=== PATIENT | female | born 1985 | race Caucasian/White ===

== ENCOUNTER 2018-11-05 05:49 | Inpatient (IN) | payer BC ==
[~2018-11-05] VITALS: Ht 162.6 cm; Wt 80.0 kg
[2018-11-05] VITALS (37 sets, daily range): BP systolic 118–156; BP diastolic 59–102; PULSE 65–117; TEMP 97.7–98.8
[~2018-11-05 05:49] MED LIST: ATIVAN 1MG T1 MG/TAB PO; FOLIC ACID0.4 MG PO; IBU600 MG PO; LAMICTAL 100MG100 MG PO; LAMICTAL200 MG PO; PERCOCET 325 MG1 TA2 PO; PRENATAL MVI PO; PRENATAL1 TA7 PO; PROBIOTIC FORMU1 CAP PO; VITAMIN B-1000 MCG/T; VITAMIN D1000 IU; VITAMIN K0.1 MG; VITAMIN K0.1 MG PO
--- NOTE | 2018-11-05 07:15 | NUR ---
Pt arrives on unit ambulatory for induction of labor. G5L1 at 39.0 weeks. Changed into clean gown. EFM and toco applied. Denies leaking of fluid, vaginal bleeding and regular ctx. Reports good movement. Admission assessment completed. IV started in RW. Labs drawn. LR infusing. Consents signed. Pt updated on POC. Oriented to room. Bed locked in low position. Call light within reach. No questions or concerns at this time.
[2018-11-05] MEDS ORDERED: PROCARDIA XL 3030 MG PO (07:20)
[2018-11-05 07:56] LABS: COLLECTION METHOD CLEAN CATCH
[2018-11-05 08:00] LABS: BASO % 0.2 % (0.0-2.0); EOS # 0.4 (0.0-0.7); EOS % 4.7 % (0-4.0); GRAN # 5.8 (1.4-6.5); GRAN % 69.4 % (42.2-75.2); HEMATOCRIT 35.7 % (37.0-47.0); HEMOGLOBIN 11.9 g/dl (12.5-16.0); LYMPH # 1.4 (1.2-3.4); LYMPH % 17.1 % (20.0-51.0); MEAN CELL VOLUME 84 fl (80.0-100.0); MEAN CORPUSCULAR HEMOGLOBIN 28 pg (27.0-31.0); MEAN CORPUSCULAR HGB CONC 33 g/dl (33.0-37.0); MEAN PLATELET VOLUME 9.9 fl (7.4-10.4); MONO # 0.7 (0.1-0.6); MONO % 8.1 % (1.7-9.3); PLATELET COUNT 369 K/mm3 (130-400); RED BLOOD COUNT 4.25 M/mm3 (4.10-5.30); REDCELL DISTRIBUTION WIDTH-CV 13.2 % (11.5-14.5)
[2018-11-05 08:04] LABS: PH 7 (5-8); SQUAMOUS EPITHELIAL 0-2 /hpf; URINE APPEARANCE Clear; URINE BACTERIA Occasional /hpf; URINE BILIRUBIN Negative (NEGATIVE); URINE BLOOD Negative (NEGATIVE); URINE COLOR Straw; URINE GLUCOSE Negative (NEGATIVE); URINE KETONE Negative (NEGATIVE); URINE LEUKOCYTE ESTERASE Negative (NEGATIVE); URINE NITRATE Negative (NEGATIVE); URINE PROTEIN(semi-quant) Negative (NEGATIVE); URINE RBC 0-2 /hpf; URINE UROBILINOGEN Negative (NEGATIVE); URINE WBC 0-2 /hpf
[2018-11-05 08:10] LABS: ALBUMIN 3.7 gm/dL (3.5-5.0); BILIRUBIN,TOTAL 0.3 mg/dL (0.0-1.0); CALCIUM 9.4 mg/dL (8.4-10.2); CREATININE, serum 0.5 (0.52-1.25); POTASSIUM 3.4 mmol/L (3.4-5.0); TOTAL PROTEIN 6.9 gm/dL (6.4-8.2)
--- NOTE | 2018-11-05 12:15 | NUR ---
Pt sitting upright. Difficulty tracing FHR. RN at bedside. FHR audible.
--- NOTE | 2018-11-05 14:09 | NUR ---
Pt states increase of rectal pressure. SVE per this RN C/0. Dr. Mcallister requested to unit. 1422- of viable infant attended by Dr. Mcallister. Cord clamped x 2. cut from umbilicus, dried and placed on mother's abdomen. Apgars 8/9/9. Care of infant to Evelia Louise RN. 1425- of placenta. Fundus firm, at umbilicus. Bleeding WNL. Pitocin bolus infusing. Perineum intact. Pericare and icepack applied. Pt updated on POC. Safety reviewed. Bed locked in low position. Call light within reach. No questions or concerns at this time.
--- NOTE | 2018-11-05 21:00 | NUR ---
PT TAKES HER OWN LamoTRIgine
[2018-11-06 03:06] VITALS: BP 130/84; PULSE 80; TEMP 98.4
[2018-11-06] MEDS ORDERED: MOTRIN 800800 MG/TAB PO (06:42)
[2018-11-06 07:42] VITALS: BP 124/66; PULSE 74; TEMP 98.1
[2018-11-06 08:43] LABS: HEMATOCRIT 35.3 % (37.0-47.0); HEMOGLOBIN 11.8 g/dl (12.5-16.0)
--- NOTE | 2018-11-06 12:32 | NUR ---
Elect Equip Maint Eng offered congrats to parents and family.
[2018-11-06 15:08] VITALS: BP 126/78; PULSE 78; TEMP 98.1
== END 2018-11-06 16:26 | disposition home or self-care (01) | DRG 806 ==
LOC: LDR 05:49 → OB 17:00
PROVIDERS: ADMIT Obstetrics & Gynecology
PROC: 10E0XZZ Delivery of Products of Conception, External Approach (ICD-10-PCS; principal; 2018-11-05)
PROC: 3E0P7VZ Introduction of Hormone into Female Reproductive, Via Natural or Artificial Opening (ICD-10-PCS; 2018-11-05)
PROC: 10907ZC Drainage of Amniotic Fluid, Therapeutic from Products of Conception, Via Natural or Artificial Opening (ICD-10-PCS; 2018-11-05)
DX: O13.4 Gestational [pregnancy-induced] hypertension without significant proteinuria, complicating childbirth (principal); O99.354 Diseases of the nervous system complicating childbirth; Z37.0 Single live birth; Z3A.39 39 weeks gestation of pregnancy; G40.909 Epilepsy, unspecified, not intractable, without status epilepticus
CPT/HCPCS: J2590; J7120

== ENCOUNTER → 2018-11-09 | Outpatient (CLI) | payer BC ==
[~2018-11-09] MED LIST changes: +MOTRIN 800800 MG/TAB PO; +PROCARDIA XL 3030 MG PO
--- NOTE | 2018-11-09 12:22 | NUR ---
Pt, Ping Amador, presents for walk-in clinic with 4 day old baby girl, Shabnam Amador. Pt c/o sore nipples and has h/o ineffective with previous child who is now 4 years old. Shabnam was born on [birth year] and weighed 6#10oz. Discharge weight was 6#8oz. Pt does not remember infant's weight yesterday with Dr. Claire, only that she was "6%" below weight. Today Shabnam weighs 6#4.4oz (2846 gms) for 6% loss from . Pt works with latching baby, reminded of positions that make latching more easy, including support of breast and baby. Infant on and of left side before she stays for about 15 min. On the right breast, pt has a noted scab directly in the center of nipple face, indicative of pinching and shallow latch. Pt nurses this breast for about 20 min. Post feed gain is 12gms from the left and 10gms from the left for a total gain of 22 gms. Because of low output, behaviour (still strongly rooting) after feeding, and little change in breast milk supply, pt advised to supplement 15-30ml EBM or formula after each , and to pump after breastfeedings to improve milk supply. Pt verbalizes understanding, disappointed with information of 's tranfer, but indicates she will work with feedings. Follow up: two days with this LC to re-evaluate milk supply and transfer. Questions invited and answered.
== END ==
LOC: LAC 10:14
DX: Z39.1 Encounter for care and examination of lactating mother (principal); Z71.89 Other specified counseling

== ENCOUNTER → 2018-11-11 | Outpatient (CLI) | payer BC ==
--- NOTE | 2018-11-11 13:29 | NUR ---
Pt, Ping Amador, presents for outpatient consult with 6 day old baby girl, Shabnam Amador to evaluate and milk supply. They were at walk-in clinic on 11/09/18. Shabnam is her second baby; she struggled with latching and low milk supply with her first baby 3 years ago. Shabnam was born on [birth year] and weighed 6#10oz (3005 gms). Her weight ws 6#4.4oz 2846 gms) at clinic two days ago, and today her weight is 6#6.7oz (2910 gms). Since the clinic visit pt states she lets Shabnam every 1-2 hours in the daytime. By evening Shabnam is getting less content at the breast and receives 2-3oz of formula two or three times before bed. Pt does not have time to pump with the and 3 year old, so elects to have Shabnam at the breast more. Latch appears to come together better today then when at clinic. After nursing the left breast Shabnam has a weight gain of 24 gms, and after the right a gain of only 6gms. Pt agrees to try SNS, she is able to work the tubing in once baby is latched. takes 12ml via SNS on the right breast, and an additional 10ml from breast. On the left she takes 7ml via SNS adn 3 more from the breast for a total weight gain of 62 gms. POC: Pt will try SNS at home, offering 12ml per breast. If she cannot coordinate SNS, she will supplement about 1oz per feeding or every other feeding based on infant behaviour. Follow up: will be next week at walk-in clinic. Pt verbalizes understand.
== END ==
LOC: OLC 12:53
DX: Z39.1 Encounter for care and examination of lactating mother (principal); Z71.89 Other specified counseling

== ENCOUNTER → 2018-11-16 | Outpatient (CLI) | payer BC ==
--- NOTE | 2018-11-16 12:22 | NUR ---
Pt, Ping Amador, into clinic with 2 week old Shabnam for weight check. Ping and Shabnam been into the clinic and in for consult appointments, please see previous notes. Ping has been Shabnam ad tanmay 8 + times per day and supplementing after feeds based on feeding cues. Ping reports Shabnam to be taken approx 7-8 oz total of EBM or formula via bottle total in a 24 hour peiod. Per Ping, Shabnam is having 6 + wet diapers per day and 3 yellow diapers per day. Ping becky states Shabnam is spitting up after feeds. Shabnam's weight on 11/11/18 was 6 # 6.7 oz (2910 g), today's weight was 7 # 0.4 oz (3186 g), a gain of 9.9 oz in 5 days. POC: Continue to feed ad tanmay, due to great weight gain and spitting up start weaning supplementation. Return to clinic next week for pre/post feed weights. Understanding verbalized.
== END ==
LOC: LAC 11:20
DX: Z39.1 Encounter for care and examination of lactating mother (principal); Z71.89 Other specified counseling

== ENCOUNTER → 2018-11-23 | Outpatient (CLI) | payer BC ==
--- NOTE | 2018-11-23 11:45 | NUR ---
Pt, Ping Amador, into walk in clinic with 3 week old Shabnam for weight check. Ping and Shabnam have been into clinic and in for previous consults, please see previous notes. Ping reports Shabnam is nursing about every 2 hours, but she has been trying to get her to feed about every 3. In addition to nursing, Shabnam receives approx 5 bottles 0.5- 2 oz of supplement after feeds per day. Dipaers are WNL. Ping expresses concern re: Shabnam having "tummy trouble" recently and reports she has been giving her gas drops which she feels have helps. She also states she feels her right breast is not producing near a much milk as her left. Discussed needs to increase pumping to stimulate supply and discussed supplements to help increase milk supply. Shabnam's prefeed weight today was 7# 4.2 oz, a gain of approx 4 oz from last week's weight of 7# 0.2. While in clinic, Shabnam nursed for approx from 15 min from each breast and gained a total of 1.28 oz (36 g). Ping did not feel like this nursing session was a good representation of how well she nurses. Ping then offered Shabnam 2 oz of formula. POC: Continue to feed ad tanmay, continue to supplement after feeds based on cues. Increase number of pumping sessions per day to help increase supply, consider power pumping if she has time during the day.
== END ==
LOC: LAC 11:11
DX: Z39.1 Encounter for care and examination of lactating mother (principal); Z71.89 Other specified counseling

== ENCOUNTER → 2018-11-30 | Outpatient (CLI) | payer BC ==
--- NOTE | 2018-11-30 13:22 | NUR ---
Pt, Ping Amador, presents to walk-in clinic with four week old baby girl, Shabnam Talavera. They have been coming to clinic regularly as Ping has low milk supply and she is watching Shabnam's growth closely. Ping has h/o low milk supply with her first child. Shabnam was born on [birth year] and weighed 6#10oz. Last week she weighed 7#4.2oz, and she had a post feed weight gain of 36gms. Today Shabnam weighs 7#12.5oz for a gain of 8.3oz in the last week. Ping reports she provides Shabnam with about 4oz of formula supplement each day, on an as needed basis, so weight gain this week is encouraging. Output continues to be WNL. She also does not report Shabnam having tummy trouble like she did last week. After Shabnam had a 2oz gain from the right breast. Initially pt did not plan to nurse the left side here as it "doesn't have much milk" so the diaper was changed but then she did breastfeed, so unable to determine additional gain after second breast. POC: Continue /supplementing as she has, consider trying to pump right side after each to work on increasing supply. F/U: Walk in clinic as desired. Questions invited and answered.
== END ==
LOC: LAC 10:42
DX: Z39.1 Encounter for care and examination of lactating mother (principal); Z71.89 Other specified counseling

== ENCOUNTER 2021-02-07 06:45 | Inpatient (IN) | payer BC ==
[~2021-02-07] VITALS: Ht 165.1 cm; Wt 80.0 kg
[2021-02-07] VITALS (22 sets, daily range): BP systolic 120–161; BP diastolic 58–85; PULSE 73–101; TEMP 98.2–98.7
--- NOTE | 2021-02-07 06:50 | NUR ---
PATIENT HERE TO LR6 LABOR CHECK FOR CONTRACTIONS. PATIENT CHANGED INTO GOWN, ON EFM, ASSESMENT COMPLETE, SVE PREFORMED, QUESTIONS ANSWERED. IV STARTED AT 0730. CONSENTS SIGNED. AT BEDSIDE, PATIENT DENIES LEAKING OF FLUID OR BLEEDING. LINDSEY REY REPORT GIVEN AT 0810
[2021-02-07 08:00] LABS: BASO % 0.2 % (0.0-2.0); EOS # 0.1 (0.0-0.7); EOS % 1.3 % (0-4.0); GRAN # 7.5 (1.4-6.5); GRAN % 76.9 % (42.2-75.2); HEMOGLOBIN 11.2 g/dl (12.5-16.0); LYMPH # 1.3 (1.2-3.4); LYMPH % 12.8 % (20.0-51.0); MEAN CELL VOLUME 82 fl (80.0-100.0); MEAN CORPUSCULAR HEMOGLOBIN 27 pg (27.0-31.0); MEAN CORPUSCULAR HGB CONC 33 g/dl (33.0-37.0); MEAN PLATELET VOLUME 9.8 fl (7.4-10.4); MONO # 0.8 (0.1-0.6); MONO % 8.1 % (1.7-9.3); PLATELET COUNT 346 K/mm3 (130-400); RED BLOOD COUNT 4.21 M/mm3 (4.10-5.30); REDCELL DISTRIBUTION WIDTH-CV 14.1 % (11.5-14.5)
[2021-02-07 08:01] LABS: HEMATOCRIT 34.4 % (37.0-47.0)
[2021-02-07] MEDS ORDERED: MEPHYTON 5MG5 MG/TAB PO (08:11)
--- NOTE | 2021-02-07 08:42 | NUR ---
PATIENTS COVID QUESTIONS ALL NEGATIVE
--- NOTE | 2021-02-07 08:45 | NUR ---
Dr. Mcallister at the bedside. FHR tracing reviewed. SVE done and AROM with clear fluid per Dr. Mcallister.
--- NOTE | 2021-02-07 09:57 | NUR ---
0957- Dr. Mcallister at the bedside. Pt set up for delivery. 0959- Pushing started. 1019- Pitocin started per Dr. Mcallister's order. 1031- of viable male . placed on mom's abdomen. Cords clamped and cut. Care of the given to nursery RN at the bedside. 1033- of placenta. Pitocin started at 333ml/hr per order and protocol. Fundus firm and lochia WNL.
--- NOTE | 2021-02-07 13:30 | NUR ---
Pt up to the bathroom with standby assist and without complications. Pt was able to void. Susi-care done. Pt transferred to room 219 via wheelchair. Assisted to bed. Oriented to room, bed and call light within reach. Plan of care reviewed.
--- NOTE | 2021-02-07 18:30 | NUR ---
REPORT RECEIVED. INTO ROOM TO INTRODUCE SELF AND UPDATE WHITEBOARD. MOM IN BED WITH INFANT IN ARMS. EXPLAINED PLAN OF CARE FOR THE NIGHT AND INVITED QUESTIONS. ANSWERED ANY QUESTIONS, REFILLED MOMS WATER. WILL CONTINUE TO MONITOR.
[2021-02-07] MEDS ORDERED: LAMICTAL XR200 MG PO (22:13)
[2021-02-08 04:30] VITALS: BP 131/68; PULSE 78; TEMP 98
[2021-02-08 06:51] VITALS: BP 123/81; PULSE 83; TEMP 98.2
[2021-02-08 06:54] LABS: HEMOGLOBIN 11.2 g/dl (12.5-16.0)
[2021-02-08 06:55] LABS: HEMATOCRIT 34.4 % (37.0-47.0)
[2021-02-08] MEDS ORDERED: MOTRIN 600600 MG/TAB PO (12:59)
== END 2021-02-08 14:10 | disposition home or self-care (01) | DRG 807 ==
LOC: LDRO 06:45 → LDR 07:07 → OB 14:04
PROVIDERS: ADMIT Obstetrics & Gynecology
PROC: 10E0XZZ Delivery of Products of Conception, External Approach (ICD-10-PCS; principal; 2021-02-07)
PROC: 10907ZC Drainage of Amniotic Fluid, Therapeutic from Products of Conception, Via Natural or Artificial Opening (ICD-10-PCS; 2021-02-07)
DX: O99.354 Diseases of the nervous system complicating childbirth (principal); Z37.0 Single live birth; Z3A.39 39 weeks gestation of pregnancy; G40.909 Epilepsy, unspecified, not intractable, without status epilepticus
CPT/HCPCS: J2590; J7120